=== PATIENT | female | born 1985 ===

== ENCOUNTER → 2023-07-25 | Outpatient (CLI) | payer OTHER ==
[2023-08-06 13:15] LABS: HPV GENOTYPE 16 Detected; HPV GENOTYPE 18 Not Detected; HPV HIGH RISK Detected; HPV SOURCE Cervical
== END ==
LOC: LAB SHORT 12:00 → LAB 12:00 → LAB SHORT 07-27 07:49
PROVIDERS: Family Medicine
DX: Z01.419 Encounter for gynecological examination (general) (routine) without abnormal findings (principal)
CPT/HCPCS: 87624; G0123

== ENCOUNTER → 2023-08-31 | Outpatient (CLI) | payer OTHER ==
[2023-09-08 11:23] LABS: HPV GENOTYPE 16 Detected; HPV GENOTYPE 18 Not Detected; HPV HIGH RISK Detected; HPV SOURCE Vaginal
== END ==
LOC: LAB 17:41 → LAB SHORT 17:41
PROVIDERS: Family Medicine
DX: Z12.72 Encounter for screening for malignant neoplasm of vagina (principal)
CPT/HCPCS: 87624; G0123

== ENCOUNTER → 2024-09-03 | Outpatient (CLI) | payer OTHER | LOC: LAB SHORT 11:26 → LAB 11:26 | DX: O09.90 Supervision of high risk pregnancy, unspecified, unspecified trimester (principal); Z3A.00 Weeks of gestation of pregnancy not specified; Z88.0 Allergy status to penicillin | CPT/HCPCS: 87081; 87150 ==

== ENCOUNTER 2024-09-24 03:07 | Inpatient (IN) | payer OTHER ==
[~2024-09-24] VITALS: Ht 170.2 cm; Wt 95.0 kg
[2024-09-24] VITALS (19 sets, daily range): BP systolic 123–193; BP diastolic 63–104
[2024-09-24] MEDS ORDERED: Calcium Carbonate 500 MG Tab Chew PO PRN (03:25)
[2024-09-24] MEDS ORDERED: Acetaminophen 500 MG Tab PO PRN (03:25)
[2024-09-24] MEDS ORDERED: Oxytocin 10 Unit / ML Vial IM PRN (03:25)
[2024-09-24] MEDS ORDERED: Lactated Ringer's 1,000 ML IV PRN (03:25)
[2024-09-24] MEDS ORDERED: Misoprostol 200 MCG Tab BC PRN (03:25)
[2024-09-24] MEDS ORDERED: Misoprostol 200 MCG Tab PR PRN (03:25)
[2024-09-24] MEDS ORDERED: Methylergonovine Maleate 0.2MG / ML 1ML Amp IM PRN ×2 (03:25→11:05)
[2024-09-24] MEDS ORDERED: Tranexamic Acid 100 ML IV SCH (03:25)
[2024-09-24] MEDS ORDERED: Carboprost Tromethamine 250 MCG/ML 1ML Amp IM PRN ×2 (03:25→11:10)
[2024-09-24] MEDS ORDERED: OXYTOCIN/RINGER'S LACTATE 500 ML IV PRN (03:25)
[2024-09-24] MEDS ORDERED: Ondansetron HCl 2 MG / ML 2ML Vial IV PRN (03:25)
[2024-09-24] MEDS ORDERED: FentaNYL Citrate 50 MCG/ML 2 ML Injection IV PRN (03:35)
[2024-09-24] MEDS ORDERED: Lactated Ringer's 1,000 ML IV SCH ×3 (03:40→11:00)
[2024-09-24] MEDS ORDERED: ePHEDrine Sulfate 50 MG/ML 1ML Injection XX PRN (03:40)
[2024-09-24] MEDS ORDERED: FentaNYL 2mcg/ml-Bup 0.1% Epd 250 ML EPI PRN (03:40)
[2024-09-24 04:02] LABS: BASOPHILS ABSOLUTE AUTO 0.06 K/mm3 (0.00-0.23); BASOPHILS PERCENT AUTO 0 % (0-2); EOSINOPHILS ABSOLUTE AUTO 0.04 K/mm3 (0.00-0.68); EOSINOPHILS PERCENT AUTO 0 % (0-6); Hematocrit 36.9 % (33.0-51.0); Hemoglobin 12.9 g/dL (11.5-16.0); IMMATURE GRAN ABSOLUTE AUTO 0.07 K/mm3 (0.00-0.10); IMMATURE GRAN PERCENT AUTO 0 % (0-1); LYMPHOCYTES ABSOLUTE AUTO 1.65 K/mm3 (0.84-5.20); LYMPHOCYTES PERCENT AUTO 10 % (21-46); MONOCYTES ABSOLUTE AUTO 0.89 K/mm3 (0.16-1.47); MONOCYTES PERCENT AUTO 5 % (4-13); Mean Corpuscular HGB 31.4 pg (26.0-34.0); Mean Corpuscular Volume 90 fL (80-100); Mean Platelet Volume 9.8 fL (9.1-12.4); NEUTROPHILS ABSOLUTE AUTO 13.84 K/mm3 (1.96-9.15); NEUTROPHILS PERCENT AUTO 84 % (41-73); Platelet Count 223 K/mm3 (150-400); RDW Coefficient Variation 12.8 % (11.7-14.2); RDW Standard Deviation 41.8 fL (35.1-46.3); Red Blood Cell Count 4.11 M/mm3 (3.80-5.20); White Blood Cell Count 16.55 K/mm3 (4.00-11.30)
[2024-09-24] MEDS ORDERED: FLU VACC TS2024-25(6MOS UP)/PF 45 MCG/0.5 ML SYRINGE IM PRN (11:00)
[2024-09-24] MEDS ORDERED: Docusate Sodium 100 MG Cap PO PRN (11:00)
[2024-09-24] MEDS ORDERED: Witch Hazel/Glycerin PADS TOP PRN (11:00)
[2024-09-24] MEDS ORDERED: Rho(D) Immune Globulin 300 MCG / SYR IM ONE (11:00)
[2024-09-24] MEDS ORDERED: Acetaminophen 325 MG TABLET PO PRN (11:05)
[2024-09-24] MEDS ORDERED: Lanolin Cream TOP PRN (11:05)
[2024-09-24] MEDS ORDERED: Misoprostol 100 MCG Tab PO PRN (11:05)
[2024-09-24] MEDS ORDERED: Measles/Mumps/Rubella Vaccine 0.5 ML Vial SC PRN (11:05)
[2024-09-24] MEDS ORDERED: Oxytocin 10 Unit / ML Vial IM ONE (11:05)
[2024-09-24] MEDS ORDERED: Diphth,Pertuss(Acell),Tet Vac 0.5 ML VIAL IM PRN (11:05)
[2024-09-24] MEDS ORDERED: Benzocaine Topical Anesthetic Spray 60GM TOP PRN (11:10)
[2024-09-24] MEDS ORDERED: OXYTOCIN/RINGER'S LACTATE 500 ML IV SCH (11:10)
[2024-09-24] MEDS ORDERED: Ketorolac Tromethamine 30mg Vial IV SCH (12:00)
[2024-09-24] MEDS ORDERED: Misoprostol 200 MCG Tab PO ONE (12:43)
[2024-09-25 01:25] VITALS: BP 133/80
[2024-09-25 04:51] VITALS: BP 128/74
[2024-09-25] MEDS ORDERED: Ibuprofen 400 MG Tab PO PRN (06:00)
[2024-09-25 06:23] LABS: BASOPHILS ABSOLUTE AUTO 0.04 K/mm3 (0.00-0.23); BASOPHILS PERCENT AUTO 0 % (0-2); EOSINOPHILS ABSOLUTE AUTO 0.07 K/mm3 (0.00-0.68); EOSINOPHILS PERCENT AUTO 0 % (0-6); Hematocrit 29.4 % (33.0-51.0); Hemoglobin 10.1 g/dL (11.5-16.0); IMMATURE GRAN PERCENT AUTO 1 % (0-1); LYMPHOCYTES ABSOLUTE AUTO 3.01 K/mm3 (0.84-5.20); LYMPHOCYTES PERCENT AUTO 19 % (21-46); MONOCYTES ABSOLUTE AUTO 1.33 K/mm3 (0.16-1.47); MONOCYTES PERCENT AUTO 8 % (4-13); Mean Corpuscular HGB 31.8 pg (26.0-34.0); Mean Corpuscular HGB Conc 34.4 g/dL (31.5-36.5); Mean Corpuscular Volume 93 fL (80-100); Mean Platelet Volume 9.5 fL (9.1-12.4); NEUTROPHILS ABSOLUTE AUTO 11.41 K/mm3 (1.96-9.15); NEUTROPHILS PERCENT AUTO 72 % (41-73); Platelet Count 239 K/mm3 (150-400); RDW Coefficient Variation 13.2 % (11.7-14.2); RDW Standard Deviation 44.9 fL (35.1-46.3); Red Blood Cell Count 3.18 M/mm3 (3.80-5.20); White Blood Cell Count 15.96 K/mm3 (4.00-11.30)
[2024-09-25 07:18] VITALS: BP 120/68
[2024-09-25] MEDS ORDERED: Prenatal Vit/FE Fumarate/FA 1 Tab PO SCH (09:00)
[2024-09-25 11:21] VITALS: BP 118/79
== END 2024-09-25 12:20 | disposition home or self-care (01) | DRG 807 ==
LOC: OBS 03:07 → BC 03:12 → OBS 03:25 → BC 03:25
PROVIDERS: Family Medicine; ADMIT Family Medicine
PROC: 10E0XZZ Delivery of Products of Conception, External Approach (ICD-10-PCS; principal; 2024-09-24)
PROC: 0KQM0ZZ Repair Perineum Muscle, Open Approach (ICD-10-PCS; 2024-09-24)
DX: O42.02 Full-term premature rupture of membranes, onset of labor within 24 hours of rupture (principal); Z37.0 Single live birth; Z3A.39 39 weeks gestation of pregnancy; O70.1 Second degree perineal laceration during delivery; Z87.891 Personal history of nicotine dependence; Z88.1 Allergy status to other antibiotic agents; Z98.890 Other specified postprocedural states; Z88.8 Allergy status to other drugs, medicaments and biological substances
CPT/HCPCS: 36415; 59025; 85025; 86850; 86900; 86901; 99214; A9270; J2590

== ENCOUNTER → 2024-11-08 | Outpatient (CLI) | payer OTHER ==
[2024-11-16 09:20] LABS: HPV HIGH RISK BY TMA Not Detected; HPV SOURCE Cervical
== END ==
LOC: LAB SHORT 13:10 → LAB 13:10
PROVIDERS: Advanced Practice Midwife
DX: Z87.42 Personal history of other diseases of the female genital tract (principal)
CPT/HCPCS: 87624; 88142